=== PATIENT | female | born 1950 | race Caucasian/White ===

== ENCOUNTER → 2017-02-17 | Outpatient (CLI) | payer MEDICARE ==
[~2017-02-17] MED LIST: ALPR0.25 PO; ASPI-496 PO; ASPI-621 PO; CALC-451 PO; FENTANYL PF 100 MCG/2ML ONE; FLUMAZENIL 0.1 MG/1 ML, 5ML ONE; METO200T3 PO; METO25TA4 PO; MIDAZOLAM 1 MG/ML, 5ML ONE; NALOXONE 1 MG/ML, 2ML ONE; NITR0.4T SL; NITR0.4T8 SL; SIMV20TA PO
== END | disposition home or self-care (01) ==
LOC: RAD 11:39
PROVIDERS: ATTEND Student in an Organized Health Care Education/Training Program
DX: M50.13 Cervical disc disorder with radiculopathy, cervicothoracic region (principal); M48.03 Spinal stenosis, cervicothoracic region; M43.22 Fusion of spine, cervical region; M51.16 Intervertebral disc disorders with radiculopathy, lumbar region; M41.86 Other forms of scoliosis, lumbar region
CPT/HCPCS: 72141; 72148; 99156; 99157; J2250; J3010; J2310

== ENCOUNTER 2019-11-17 11:36 | Emergency (ER) | payer MEDICARE ==
[~2019-11-17] VITALS: Ht 160 cm; Wt 62.6 kg
[~2019-11-17 11:36] MED LIST changes: -ASPI-621 PO; +ASPI81TA45 PO; -FENTANYL PF 100 MCG/2ML ONE; -FLUMAZENIL 0.1 MG/1 ML, 5ML ONE; -METO200T3 PO; +METO200T47 PO; -MIDAZOLAM 1 MG/ML, 5ML ONE; -NALOXONE 1 MG/ML, 2ML ONE; -NITR0.4T SL; +NITR0.4T28 SL; +NITR0.4T41 SL; -NITR0.4T8 SL
--- NOTE | 2019-11-17 11:45 | NUR ---
ekg in triage.
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
[2019-11-17] MEDS ORDERED: DIAZEPAM 5 MG TABLET ONE (12:47)
[2019-11-17] MEDS ORDERED: KETOROLAC 30 MG/1 ML ONE (12:48)
[2019-11-17 12:50] VITALS: BP 162/74
--- NOTE | 2019-11-17 12:50 | NUR ---
PT TO IMAGING
[2019-11-17] MEDS ORDERED: DIAZEPAM 5 MG TABLET PO ONE (13:00)
[2019-11-17] MEDS ORDERED: KETOROLAC 30 MG/1 ML IM ONE (13:00)
--- NOTE | 2019-11-17 13:49 | NUR ---
DICHARGE INSTRUCTIONS REVIEWED
== END 2019-11-17 14:15 | disposition home or self-care (01) ==
LOC: ED 12:14
DX: M54.16 Radiculopathy, lumbar region (principal); M54.6 Pain in thoracic spine; R94.31 Abnormal electrocardiogram [ECG] [EKG]; G89.29 Other chronic pain; I10 Essential (primary) hypertension; I25.2 Old myocardial infarction; Z86.73 Personal history of transient ischemic attack (TIA), and cerebral infarction without residual deficits
CPT/HCPCS: 72128; 72131; 93005; 96372; 99285; J1885